=== PATIENT | female | born 1960 | race African-American/Black ===

== ENCOUNTER 2024-06-23 11:42 | Emergency (ER) | payer OTHER, SELFPAY ==
[2024-06-23 11:49] VITALS: BP 132/95
[2024-06-23 12:15] VITALS: BMI 35.1
[2024-06-23 12:31] LABS: % Basophils 0.2 % (0-2); % Immature Granulocytes 0.2 % (0-0.5); % Lymphocytes 20.9 % (20.5-51.1); % Monocytes 8.5 % (1.7-9.3); % Neutrophils 69.2 % (42.2-75.2); Absolute Eosinophils 0.1 10^3/uL (0-0.7); Absolute Lymphocytes 1.3 10^3/uL (1.2-3.4); Absolute Monocytes 0.5 10^3/uL (0.1-0.6); Absolute Neutrophils 4.1 10^3/uL (1.4-6.5); Hematocrit 31.8 % (37.0-47.0); Hemoglobin 10.3 g/dL (12.0-16.0); Mean Corp Hgb Conc. 32.4 g/dL (33.0-37.0); Mean Corpuscular Hgb 31.4 pg (27.0-31.0); Mean Platelet Volume 10.4 fL (7.4-10.4); Nucleated Red Blood Cells % 0 %; Platelet Count 136 10^3/uL (130-400); Red Blood Cell Count 3.28 10^6/uL (4.20-5.40); Red Cell Dist. Width 14.8 % (11.5-14.5)
[2024-06-23 12:58] LABS: INR 2.95; PT 30.7 Sec (11.4-14.6)
[2024-06-23 13:00] VITALS: BP 100/51
[2024-06-23 13:12] LABS: NT-proBNP 1240 pg/ml; Troponin I < 0.012 ng/ml
--- NOTE | 2024-06-23 13:15 | ED.GENMED ---
History of Present Illness
General
Chief Complaint: Chest Pain
Time Seen by Provider: 06/23/24 12:25
History of Present Illness
History of Present Illness:
63-year-old female presents the emergency department for evaluation of chest heaviness and difficulty breathing ongoing for the past 2 weeks. Symptoms are worse when she lies flat at night or when she exerts herself. She feels well currently while
resting in the exam bed. She does not weigh herself routinely, states that her weight typically fluctuates between 140 and 145 pounds. She is been compliant with all of her meds. Follows with cardiology at [facility].
Past History
Past History
ED Past Medical History: Arrthythmia (Atrial fib), CAD, CHF, HTN, Hypercholesterolemia, Valvular disease and Other (Bronchitis, PNA, Cellulitis breast)
ED Past Surgical History: Cardiac (Aortic Valve replacement) and Cholecystectomy
Social History
Tobacco: Non-smoker
Alcohol: None
Drug: None
Personal:
Living: with family
Employment: Employed
Family History
Family History: Other (denies)
Review of Systems
Review of Systems
Allergies reviewed?: Yes
All Other Systems: ROS reviewed and negative except as documented in HPI and ROS
Phy Exam
Physical Exam
Physical Exam:
GEN: Well appearing, NAD, WDWN
Eyes: PERRLA, EOMs intact, no scleral icterus
HENT: NCAT, oral mucosa moist
Lungs: C normal respiratory effort, diffuse inspiratory crackles heard throughout all lung corrigan
Cardiac: RRR, no M/R/G, Radial pulses 2+ bilat
Abdomen: S, NT, ND, NABS, no masses or hepatosplenomegaly
Neuro: AO x 3
MSK: No gross deformity or ecchymosis. Moderate pretibial edema. No digital clubbing
Skin: No rashes, petechiae. Normal color, no pallor or jaundice.
Psych: Calm, cooperative, proper hygiene
Scores
Heart Score for Chest Pain Patients
STEMI patient?: Not applicable
Course
Orders/Labs/Results
Orders:
Orders
06/23/24 11:53
ECG [Electrocardiogram (*1)] Urgent
Reason for Study: Chest Pain
EKG- Treatment ONCE
06/23/24 12:19
Complete Blood Count/With Diff Urgent
Comprehensive Metabolic Panel Urgent
NT-proBNP Urgent
Prothrombin Time Urgent
Troponin I Urgent
06/23/24 12:36
CR Chest - 2 Views Urgent
Comment:
Reason For Exam: chest pain/SOB
06/23/24 14:16
Bumetanide [Bumex] 2 mg IV NOW STA
Abnormal Lab Results
06/23/24
12:19
RBC 3.28 L 10^6/uL
(4.20-5.40)
Hgb 10.3 L g/dL
(12.0-16.0)
Hct 31.8 L %
(37.0-47.0)
MCH 31.4 H pg
(27.0-31.0)
MCHC 32.4 L g/dL
(33.0-37.0)
RDW 14.8 H %
(11.5-14.5)
PT 30.7 H Sec
(11.4-14.6)
BUN 24 H mg/dl
(7-17)
Creatinine 1.1 H mg/dL
(0.6-1.0)
Glucose 195 H mg/dl
(70-99)
06/23/24 12:19
06/23/24 12:19
Vital Signs
Initial and Last Documented VS:
Initial Vital Signs
Temp Pulse Resp BP Pulse Ox
97.9 F 73 20 132/95 98
06/23/24 11:49 06/23/24 11:49 06/23/24 11:49 06/23/24 11:49 06/23/24 11:49
Last Documented Vital Signs
Temp Pulse Resp BP Pulse Ox
97.9 F 49 21 123/41 97
06/23/24 11:49 06/23/24 14:00 06/23/24 14:15 06/23/24 14:00 06/23/24 14:15
MDM/Problems Addressed
MDM/Problems Addressed:
Patient's clinical presentation is most consistent with acute CHF. She is not hypoxic and is able to tolerate ambulation without significant increased work of breathing. I offered her admission and her and her would prefer discharge home.
Will briefly increase her Bumex dosage and recommend she follow-up with her certified medication technician as an outpatient
*Critical Care Note
Total Time (30-74mins, 75-104mins- exclusive of procedures): Not Applicable
ED Attending Note
-
Portions of this chart may have been created with voice recognition software.� Occasional wrong word or��sound alike� substitutions may have occurred due to the inherent limitations of voice recognition software.
Discharge Plan
Departure
Patient Disposition: Home (Routine Discharge)
Date of Disposition: 06/23/24
Time of Disposition: 14:19
Patient with high blood pressure during this ER visit?: No
Discharge Problem:
Acute exacerbation of CHF (congestive heart failure)
Instructions: Heart Failure, Adult (DC)
Prescriptions:
New
bumetanide 0.5 mg tablet
0.5 mg PO DAILY Qty: 5 0RF
No Action
aspirin 81 MG tablet,delayed release (DR/EC)
81 mg PO DAILY
simvastatin 40 MG tablet
40 mg PO QPM
glimepiride 2 MG tablet
2 mg PO DAILY
pantoprazole 40 MG tablet,delayed release (DR/EC)
40 mg PO DAILY
ranitidine HCl [Zantac 75] 75 MG tablet
75 mg PO QPM
potassium chloride 10 MEQ capsule, extended release
20 meq PO DAILY
methotrexate sodium [Trexall] 10 MG tablet
10 mg PO .[id number]
Patient Comments:
Last took on 09/30/18(MON)
warfarin [Jantoven] 7.5 MG tablet
7.5 mg PO SUTUWETHSA
warfarin [Jantoven] 5 MG tablet
5 mg PO MOFR
folic acid 1 MG tablet
1 mg PO DAILY
atenolol 25 MG tablet
25 mg PO DAILY
bumetanide 0.5 MG tablet
1.5 mg PO .-F
doxycycline hyclate 100 MG capsule
100 mg PO Q12 Qty: 14 0RF
Referrals:
Dale Christianson MD [Family Provider] -
Activity Restrictions/Additional Instructions:
We will increase your bumex to 2.5mg (you currently take 2mg) once daily for 5 days
Call your certified medication technician tomorrow for follow up
If your symptoms worsen, please return to the ER
Interventions
Interventions:
*Risk Screen - Suicide Last Done: 06/23/24 11:44
*General Assessment Last Done: 06/23/24 12:15
*Neglect/Abuse Screening Last Done: 06/23/24 12:15
ED- Cardiac Assessment Last Done: 06/23/24 12:15
Discharge Date and Time
Print Language: SLOVENIAN
[2024-06-23 13:40] VITALS: BP 123/39
[2024-06-23 14:00] VITALS: BP 123/41
[2024-06-23 14:15] LABS: ALT (SGPT) 19 U/L (0-35); AST (SGOT) 31 U/L (14-36); Albumin 4.4 g/dl (3.5-5.0); Alkaline Phosphatase 86 U/L (38-126); Blood Urea Nitrogen 24 mg/dl (7-17); Calcium 9.7 mg/dl (8.4-10.2); Carbon Dioxide 28 mmol/L (22-30); Chloride 102 mmol/L (98-107); Estimated Creatinine Clearance 37 ml/min; Glucose 195 mg/dl (70-99); Potassium 4.2 mmol/L (3.5-5.1); Sodium 141 mmol/L (135-145); Total Bilirubin 0.6 mg/dl (0.2-1.3); Total Protein 7.5 g/dl (6.3-8.2); eGFR 55.76
[2024-06-23] MEDS: BUMEX 2 MG IV (14:25)
== END 2024-06-23 15:21 | disposition home or self-care (01) ==
LOC: EMR 11:42
PROVIDERS: Emergency Medicine; EMERGENCY PHYSICIAN Student in an Organized Health Care Education/Training Program; FAMILY PHYSICIAN Internal Medicine
DX: I50.9 Heart failure, unspecified (principal)
CPT/HCPCS: 99285; 96374; 71046; 80053; 83880; 84484; 85025; 85610; 93005

== ENCOUNTER 2024-10-14 20:44 | Inpatient (IN) | payer OTHER, SELFPAY ==
[2024-10-14 13:40] VITALS: BP 132/62
--- NOTE | 2024-10-14 13:44 | ED.GENMED ---
ED Provider Triage
<Venice Jon PA-C - Last Filed: 10/14/24 19:04>
-
Patient seen by provider in Triage?: Seen in Triage
Attestation: A medical screening examination has been initiated by a qualified medical provider. Based on the assessment performed at this time, it has been determined that an emergent medical condition may exist and the patient has been informed
that further medical evaluation and possible additional diagnostic testing may be needed.
HPI: 64yoF here with SOB, leg swelling, chest heaviness x 1 week. Feels like she has fluid on her lungs. Hx of CHF on Bumex. Follows with a assurance analyst in [place].
GENERAL: Alert , in no apparent distress
EYE: No visual abnormalities.
NECK: Trachea midline
ENT: No visible abnormalities.
LUNGS: No acute respiratory distress
NEUROLOGICAL: Alert and oriented
SKIN: Skin intact. No visible changes.
MUSCULOSKELETAL: Moving extremities normally
PSYCH: Normal and appropriate interaction.
This is a medical evaluation conducted in person to initiate diagnostic evaluation and provide initial therapeutics. Please see further documentation by the treating clinician.
Bibasilar rales present. Cardiac labs, INR, EKG, and CXR ordered.
History of Present Illness
<Venice Jon PA-C - Last Filed: 10/14/24 19:04>
General
Chief Complaint: Breathing Problem
Time Seen by Provider: 10/14/24 15:25
<Rajani Grant PA-C - Last Filed: 10/14/24 18:22>
General
Source: patient
Exam Limitations: none
Nursing documentation reviewed up to this point in time: agreed with
History of Present Illness
History of Present Illness:
This is a 64-year-old female with past medical history of CHF, atrial fibrillation, GERD, diabetes, aortic stenosis presents emergency department today with concerns of shortness of breath, 3 pound weight gain, and lower extremity swelling. Patient
states that this started 2 weeks ago. She speaks in [place] and her is translating. She follows with Dr. Ravi with [facility]. She reports that she is unable to sleep laying down at night due to the shortness of breath
and cannot walk very far without feeling out of breath. She also states that she gets dizziness with exertion. She states that she has been coughing more frequently, denies any hemoptysis, denies coughing up the sputum. She denies any fevers or
chills nausea or vomiting, chest discomfort, belly pain. Denies any diarrhea or constipation. She currently takes 2 mg of bumetanide daily. She denies syncopal episodes.
Past History
<Venice Jon PA-C - Last Filed: 10/14/24 19:04>
Past History
ED Past Medical History: Arrthythmia (Atrial fib), CAD, CHF, HTN, Hypercholesterolemia, Valvular disease and Other (Bronchitis, PNA, Cellulitis breast)
ED Past Surgical History: Cardiac (Aortic Valve replacement) and Cholecystectomy
Social History
Tobacco: Non-smoker
Alcohol: None
Drug: None
Personal:
Living: with family
Employment: Employed
Family History
Family History: Other (denies)
Review of Systems
<Rajani Grant PA-C - Last Filed: 10/14/24 18:22>
Review of Systems
All Other Systems: ROS reviewed and negative except as documented in HPI and ROS
Phy Exam
<Rajani Grant PA-C - Last Filed: 10/14/24 18:22>
Physical Exam
Physical Exam:
General: Patient is well appearing and in no acute distress; non-toxic
Skin: Warm and dry, no rashes or lesions
Head: Normocephalic, atraumatic
Eyes: Sclera non-icteric. EOMs intact. PERRLA.
Cardiac: Regular rate and rhythm, no murmurs.
Peripheral Vascular: Bilateral lower extremity edema, 2+ dorsalis pedis pulses
Pulm: Increased respiratory effort, tachypnea and conversational dyspnea noted, diffuse crackles heard bilaterally
Abdomen: No abdominal tenderness to palpation
Neuro: CN II-XII intact, no focal neurologic deficits.
Psychiatric: Appropriate mood and affect.
Scores
<Venice Jon PA-C - Last Filed: 10/14/24 19:04>
Heart Failure Risk
HF Risk Score: 2
Admission Status: MEDIUM RISK 9.2% Consider observation or discharge to home with homecare & f/u visit to PCP/Small Engine Specialist, or SNF for treatment
<Rajani Grant PA-C - Last Filed: 10/14/24 18:22>
Heart Failure Risk
Heart Failure Risk Score: Yes
History of Stroke or TIA: No
History of intubation for respiratory distress: No
Heart rate on ED arrival >/= 110: No
SaO2 <90% on arrival on room air: No
HR >/=110 during 3min walk test (or too ill to perform test): Yes
ECG has acute ischemic changes: No
Urea >/=12mmol/L (BUN 33.6mg/dL): No
Serum CO2>/=35mmol/L: No
Troponin I or T elevated to OK Level (0.4mg/dL): No
NT-proBNP >/=5,000ng/L (5,000pg/ml): No
HF Risk Score: 2
Admission Status: MEDIUM RISK 9.2% Consider observation or discharge to home with homecare & f/u visit to PCP/Small Engine Specialist, or SNF for treatment
Course
<Venice Jon PA-C - Last Filed: 10/14/24 19:04>
Orders/Labs/Results
Orders:
Orders
10/14/24 13:43
Electrocardiogram (*1) Urgent
Reason for Study: Shortness of Breath
EKG- Treatment ONCE
CR Chest - 2 Views Urgent
Comment:
Reason For Exam: SOB
10/14/24 13:54
Prothrombin Time Urgent
10/14/24 13:55
Complete Blood Count/With Diff Urgent
Comprehensive Metabolic Panel Urgent
NT-proBNP Urgent
Troponin I Urgent
10/14/24 15:56
Potassium Chloride 10% Elixir [KCl Elixir] 40 meq PO NOW STA
10/14/24 17:10
Bumetanide [Bumex] 2 mg IV NOW STA
Abnormal Lab Results
10/14/24 10/14/24
13:54 13:55
RBC 3.28 L 10^6/uL
(4.20-5.40)
Hgb 9.9 L g/dL
(12.0-16.0)
Hct 30.8 L %
(37.0-47.0)
MCHC 32.1 L g/dL
(33.0-37.0)
RDW 16.5 H %
(11.5-14.5)
PT 27.9 H Sec
(11.4-14.6)
Potassium 3.4 L mmol/L
(3.5-5.1)
Chloride 97 L mmol/L
(98-107)
Carbon Dioxide 33 H mmol/L
(22-30)
BUN 23 H mg/dl
(7-17)
Creatinine 1.6 H mg/dL
(0.6-1.0)
Glucose 265 H mg/dl
(70-99)
10/14/24 13:55
10/14/24 13:55
Vital Signs
Initial and Last Documented VS:
Initial Vital Signs
Temp Pulse Resp BP Pulse Ox
98.2 F 66 18 132/62 96
10/14/24 13:40 10/14/24 13:40 10/14/24 13:40 10/14/24 13:40 10/14/24 13:40
Last Documented Vital Signs
Temp Pulse Resp BP Pulse Ox
98.2 F 60 17 101/58 98
10/14/24 13:40 10/14/24 17:39 10/14/24 17:39 10/14/24 17:39 10/14/24 17:39
<Rajani Grant PA-C - Last Filed: 10/14/24 18:22>
Orders/Labs/Results
Orders:
Orders
10/14/24 13:43
Electrocardiogram (*1) Urgent
Reason for Study: Shortness of Breath
EKG- Treatment ONCE
CR Chest - 2 Views Urgent
Comment:
Reason For Exam: SOB
10/14/24 13:54
Prothrombin Time Urgent
10/14/24 13:55
Complete Blood Count/With Diff Urgent
Comprehensive Metabolic Panel Urgent
NT-proBNP Urgent
Troponin I Urgent
10/14/24 15:56
Potassium Chloride 10% Elixir [KCl Elixir] 40 meq PO NOW STA
10/14/24 17:10
Bumetanide [Bumex] 2 mg IV NOW STA
Abnormal Lab Results
10/14/24 10/14/24
13:54 13:55
RBC 3.28 L 10^6/uL
(4.20-5.40)
Hgb 9.9 L g/dL
(12.0-16.0)
Hct 30.8 L %
(37.0-47.0)
MCHC 32.1 L g/dL
(33.0-37.0)
RDW 16.5 H %
(11.5-14.5)
PT 27.9 H Sec
(11.4-14.6)
Potassium 3.4 L mmol/L
(3.5-5.1)
Chloride 97 L mmol/L
(98-107)
Carbon Dioxide 33 H mmol/L
(22-30)
BUN 23 H mg/dl
(7-17)
Creatinine 1.6 H mg/dL
(0.6-1.0)
Glucose 265 H mg/dl
(70-99)
10/14/24 13:55
10/14/24 13:55
Vital Signs
Initial and Last Documented VS:
Initial Vital Signs
Temp Pulse Resp BP Pulse Ox
98.2 F 66 18 132/62 96
10/14/24 13:40 10/14/24 13:40 10/14/24 13:40 10/14/24 13:40 10/14/24 13:40
Last Documented Vital Signs
Temp Pulse Resp BP Pulse Ox
98.2 F 60 17 101/58 98
10/14/24 13:40 10/14/24 17:39 10/14/24 17:39 10/14/24 17:39 10/14/24 17:39
<Bairon Kovacs, DO - Last Filed: 10/14/24 16:16>
Orders/Labs/Results
Orders:
Orders
10/14/24 13:43
Electrocardiogram (*1) Urgent
Reason for Study: Shortness of Breath
EKG- Treatment ONCE
CR Chest - 2 Views Urgent
Comment:
Reason For Exam: SOB
10/14/24 13:54
Prothrombin Time Urgent
10/14/24 13:55
Complete Blood Count/With Diff Urgent
Comprehensive Metabolic Panel Urgent
NT-proBNP Urgent
Troponin I Urgent
10/14/24 15:56
Potassium Chloride 10% Elixir [KCl Elixir] 40 meq PO NOW STA
10/14/24 17:10
Bumetanide [Bumex] 2 mg IV NOW STA
Abnormal Lab Results
10/14/24 10/14/24
13:54 13:55
RBC 3.28 L 10^6/uL
(4.20-5.40)
Hgb 9.9 L g/dL
(12.0-16.0)
Hct 30.8 L %
(37.0-47.0)
MCHC 32.1 L g/dL
(33.0-37.0)
RDW 16.5 H %
(11.5-14.5)
PT 27.9 H Sec
(11.4-14.6)
Potassium 3.4 L mmol/L
(3.5-5.1)
Chloride 97 L mmol/L
(98-107)
Carbon Dioxide 33 H mmol/L
(22-30)
BUN 23 H mg/dl
(7-17)
Creatinine 1.6 H mg/dL
(0.6-1.0)
Glucose 265 H mg/dl
(70-99)
10/14/24 13:55
10/14/24 13:55
Vital Signs
Initial and Last Documented VS:
Initial Vital Signs
Temp Pulse Resp BP Pulse Ox
98.2 F 66 18 132/62 96
10/14/24 13:40 10/14/24 13:40 10/14/24 13:40 10/14/24 13:40 10/14/24 13:40
Last Documented Vital Signs
Temp Pulse Resp BP Pulse Ox
98.2 F 60 17 101/58 98
10/14/24 13:40 10/14/24 17:39 10/14/24 17:39 10/14/24 17:39 10/14/24 17:39
<Rajani Grant PA-C - Last Filed: 10/14/24 18:22>
MDM/Problems Addressed
Differential Diagnosis Includes:
See below
MDM/Problems Addressed:
NUMBER AND COMPLEXITY OF PROBLEMS ADDRESSED AT THE ENCOUNTER
� Chronic conditions affecting care: aortic stenosis, A-fib on warfarin, CHF, CAD
� Acute Exacerbation and/or Progression of Chronic Illness: CHF
� Differential Diagnosis includes: CHF, pneumonia, COPD, ACS,
AMOUNT AND/OR COMPLEXITY OF DATA TO BE REVIEWED AND ANALYZED
� I performed an independent evaluation of and my interpretation is:
EKG: Atrial fibrillation noted with right bundle branch block rate 65
X-rays: Cardiomegaly and diffuse pulmonary edema noted
Other:
� Review of other/old records: Reviewed discharge summary from 06/23/2024, patient seen for acute exacerbation of CHF, discharged with increase of diuretic, reviewed discharge summary from 03/25/2018, patient seen for hypoxic respiratory insufficiency
secondary to CHF and bronchitis
� Clinical information was obtained by an independent historian: who translated and helped provide HPI
� Prescriptions/Medications Considered but not given: none
� Further testing considered but not performed: n/a
RISK OF COMPLICATIONS AND/OR MORBIDITY OR MORTALITY OF PATIENT MANAGEMENT
� Social determinants of health affecting care: n/a
� Discussion with other providers: ER attending
� Escalation of care including admission/observation vs risk of discharge considered:
64-year-old female with past medical history of aortic stenosis, CHF presents emergency department today with increasing shortness of breath over the past 2 weeks along with a 3 pound weight gain bilateral lower extremity 1. Patient states that she
is unable to sleep at night due to the symptoms as persistent shortness of breath exertion and is not able to ambulate without significant symptoms. Here in emergency department she is dyspneic and tachypneic she has diffuse crackles heard on exam
her chest x-ray shows pulmonary edema and cardiomegaly concerning for CHF exacerbation. Will start IV diuresis in the ER and admit for further symptomatic treatment.
<Rajani Grant PA-C - Last Filed: 10/14/24 18:22>
*Critical Care Note
Total Time (30-74mins, 75-104mins- exclusive of procedures): Not Applicable
ED Attending Note
<Venice Jon PA-C - Last Filed: 10/14/24 19:04>
-
Portions of this chart may have been created with voice recognition software.� Occasional wrong word or��sound alike� substitutions may have occurred due to the inherent limitations of voice recognition software.
<Bairon Kovacs DO - Last Filed: 10/14/24 16:16>
ED Attending Note
Patient seen and examined by attending physician: Yes
I performed a history and physical exam of patient and discussed management with resident, I reviewed resident's note and agree with documented findings and plan of care.: Yes
ED Attending Note:
Seen with PA examined independently 64-year-old female history of heart failure on Bumex referred plan still cardiology for evaluation here looks to be volume overloaded by history and physical on x-ray, will replete her potassium started on IV
Bumex see how she does may require admission
Discharge Plan
Departure
Patient Disposition: Admit
Date of Disposition: 10/14/24
Time of Disposition: 18:23
Admit to: Med/Surg
Presentation/result/management discussed w/ accepting MD/DO: Hospitalist
Patient with high blood pressure during this ER visit?: Yes
Condition: Fair
Discharge Problem:
CHF (congestive heart failure), Respiratory distress
Prescriptions:
No Action
aspirin 81 MG tablet,delayed release (DR/EC)
81 mg PO DAILY
pantoprazole 40 MG tablet,delayed release (DR/EC)
40 mg PO DAILY
warfarin [Jantoven] 5 MG tablet
5 mg PO SUTUWETHFRSA
folic acid 1 MG tablet
1 mg PO DAILY
atenolol 25 MG tablet
25 mg PO DAILY
ipratropium-albuterol 0.5 mg-3 mg(2.5 mg base)/3 mL Solution For Nebulization
3 ml INHALATION R Q6HPRN PRN (Reason: sob)
bumetanide 2 mg Tablet
2 mg PO DAILY
warfarin 5 mg Tablet
7.5 mg PO MO
albuterol sulfate 90 mcg/actuation Hfa Aerosol Inhaler
2 puff INHALATION R Q6HPRN PRN (Reason: sob)
rosuvastatin 40 mg Tablet
40 mg PO HS
dapagliflozin propanediol [Farxiga] 10 mg Tablet
10 mg PO HS
metformin 500 mg Tablet
500 mg PO DAILY
spironolactone 25 mg Tablet
25 mg PO DAILY
Referrals:
Dale Christianson MD [Family Provider] -
Interventions
Interventions:
*Risk Screen - Suicide Last Done: 10/14/24 13:40
*Neglect/Abuse Screening Last Done: 10/14/24 13:40
ED- Cardiac Assessment Last Done: 10/14/24 17:39
ED- Pulmonary Assessment Last Done: 10/14/24 17:39
Discharge Date and Time
Print Language: INDONESIAN
[2024-10-14 14:08] LABS: % Basophils 0.6 % (0-2); % Eosinophils 1.3 % (0-6); % Immature Granulocytes 0.5 % (0-0.5); % Lymphocytes 23.3 % (20.5-51.1); % Monocytes 8.9 % (1.7-9.3); % Neutrophils 65.4 % (42.2-75.2); Absolute Eosinophils 0.1 10^3/uL (0-0.7); Absolute Lymphocytes 1.5 10^3/uL (1.2-3.4); Absolute Monocytes 0.6 10^3/uL (0.1-0.6); Absolute Neutrophils 4.1 10^3/uL (1.4-6.5); Hematocrit 30.8 % (37.0-47.0); Hemoglobin 9.9 g/dL (12.0-16.0); Mean Corp Hgb Conc. 32.1 g/dL (33.0-37.0); Mean Corpuscular Hgb 30.2 pg (27.0-31.0); Mean Corpuscular Volume 93.9 fL (81.0-99.0); Mean Platelet Volume 10.3 fL (7.4-10.4); Nucleated Red Blood Cells % 0 %; Platelet Count 131 10^3/uL (130-400); Red Blood Cell Count 3.28 10^6/uL (4.20-5.40); Red Cell Dist. Width 16.5 % (11.5-14.5); White Blood Cell Count 6.3 10^3/uL (4.8-10.8)
[2024-10-14 14:12] LABS: PT 27.9 Sec (11.4-14.6)
[2024-10-14 14:32] LABS: ALT (SGPT) 12 U/L (0-35); AST (SGOT) 25 U/L (14-36); Albumin 4.3 g/dl (3.5-5.0); Alkaline Phosphatase 85 U/L (38-126); Blood Urea Nitrogen 23 mg/dl (7-17); Calcium 9.2 mg/dl (8.4-10.2); Carbon Dioxide 33 mmol/L (22-30); Chloride 97 mmol/L (98-107); Glucose 265 mg/dl (70-99); Potassium 3.4 mmol/L (3.5-5.1); Sodium 140 mmol/L (135-145); Total Bilirubin 0.5 mg/dl (0.2-1.3); eGFR 35.35
[2024-10-14 14:44] LABS: Troponin I 0.023 ng/ml
[2024-10-14 15:09] LABS: NT-proBNP 1270 pg/ml
[2024-10-14] MEDS: KCL ELIXIR 40 MEQ PO (16:12)
[2024-10-14] MEDS: BUMEX 2 MG IV (17:34)
[2024-10-14 17:39] VITALS: BP 101/58
--- NOTE | 2024-10-14 19:13 | HPS.HSE ---
Family Physician
-
Family Physician: Dale Christianson
Chief Complaint
-
Dyspnea on exertion, orthopnea and weight gain
History of Present Illness
This is a 64-year-old with past medical history significant for congestive heart failure, AF status post mechanical aortic valve, atrial fibrillation, NIDDM, hyperlipidemia who presents to the emergency department with worsening dyspnea on exertion
and signs of congestive heart failure over the last few days.
Patient has chronic dyspnea on exertion at baseline. However over the last few days she has had increasing weight gain. She has orthopnea. She is unable to sleep due to the orthopnea. She reports increased lower extremity edema. She even
reports some shortness of breath at rest. She has a nonproductive cough. She denies any fevers or chills. She denies having any chest pain. She reports occasional palpitations. She denies any lightheadedness or dizziness. Has been no fevers or
chills. There have been no changes in her medications and she reports compliance.
On arrival in the emergency department she was afebrile, blood pressure was around 100/60 with a pulse of 60 respiratory rate was 17. ECG shows a sinus rhythm at a rate of [age]-year-old right bundle and left anterior fascicular block compared to
last year. Troponin was 0.02. BNP was 1200. CBC was unremarkable with a baseline anemia unchanged at 9.9 hemoglobin. INR 2.6. Electrolytes notable for a sodium of 140 potassium 3.4 a bicarb of 33. She has BUN of 23 and a creatinine of 1.6
which is worse compared to baseline of 1.1. Glucsoe 265.
Medical History
Past Medical History
Past Medical History: Reports Arrhythmia (paroxysmal atrial fibrillation), Asthma, CHF, HTN, Hypercholesterolemia, NIDDM and Valvular Disease (Aortic stenosis status post critical aortic valve)
Past Surgical History: Reports Cardiac (Mechanical aortic valve), Cholecystectomy and Other (Breast lumpectomy)
Social History
Tobacco: Non-smoker
Alcohol: None
Drug: None
Personal:
Living: With Family
Family History
Family History: Not pertinent
Allergies / Home Medications
Allergies reflects when Allergies were last updated in [employer].
Home Medications with original date entered in [employer]
Allergy/Medication List:
Allergies
Allergy/AdvReac Type Severity Reaction Status Date / Time
pineapple [Pineapple] Allergy Itching Verified 10/14/24 13:40
Home Medications
aspirin 81 mg tablet,delayed release 81 mg PO DAILY 01/25/14
pantoprazole 40 mg tablet,delayed release 40 mg PO DAILY 01/25/14
folic acid 1 mg tablet 1 mg PO DAILY 03/22/18
warfarin 5 mg tablet (Jantoven) 5 mg PO SUTUWETHFRSA 03/22/18
atenolol 25 mg tablet 25 mg PO DAILY 07/13/18
albuterol sulfate 90 mcg/actuation aerosol inhaler 2 puff inhalation R Q6HPRN PRN sob 10/14/24
bumetanide 2 mg tablet 2 mg PO DAILY 10/14/24
dapagliflozin propanediol 10 mg tablet (Farxiga) 10 mg PO HS 10/14/24
ipratropium 0.5 mg-albuterol 3 mg (2.5 mg base)/3 mL nebulization soln 3 ml inhalation R Q6HPRN PRN sob 10/14/24
metformin 500 mg tablet 500 mg PO DAILY 10/14/24
rosuvastatin 40 mg tablet 40 mg PO HS 10/14/24
spironolactone 25 mg tablet 25 mg PO DAILY 10/14/24
warfarin 5 mg tablet 7.5 mg PO MO 10/14/24
Review of Systems
-
History Source: Patient
Constitutional: Reports No Symptoms
EENT: Reports No Symptoms
Respiratory: Reports Cough and Trouble Breathing
Cardiac: Reports No Symptoms
Abdomen/GI: Reports No Symptoms
: Reports No Symptoms
Musculoskeletal: Reports No Symptoms
Skin: Reports No Symptoms
Neurological: Reports No Symptoms
Endocrine: Reports No Symptoms
Hematologic/Lymphatic: Reports No Symptoms
Psych: Reports No Symptoms
Physical Exam
Vital Signs
Vital Signs
Temp Pulse Resp BP Pulse Ox
98.2 F 60 17 101/58 98
10/14/24 13:40 10/14/24 17:39 10/14/24 17:39 10/14/24 17:39 10/14/24 17:39
Physical Exam
General: No Apparent Distress
HEENT: NormoCephalic, Anicteric and Moist mucous membranes
Respiratory: Crackles
Cardiac: S1/S2, Regular Rhythm and Peripheral Edema
Breast: Deferred by me
GI: Normal Bowel Sounds
Rectal: Deferred by Provider
Genito-urinary: Deferred by me
Musculoskeletal: No Clubbing, No Cyanosis, Edema, Left Lower Extremity (2+) and Edema, Right Lower Extremity (2+)
Skin: Warm
Neuro: AO x 3 and Nonfocal/grossly intact
Hematologic/Lymphatic: No Lymphadenopathy
Psych: Calm
Laboratory Results
-
10/14/24 13:55
10/14/24 13:55
Laboratory Results
PT 27.9 Sec (11.4-14.6) H 10/14/24 13:54
INR 2.60 10/14/24 13:54
Total Bilirubin 0.5 mg/dl (0.2-1.3) 10/14/24 13:55
AST 25 U/L (14-36) 10/14/24 13:55
ALT 12 U/L (0-35) 10/14/24 13:55
Alkaline Phosphatase 85 U/L (38-126) 10/14/24 13:55
Troponin I 0.023 ng/ml 10/14/24 13:55
Data Reviewed
-
Diagnostic Radiology: Image Personally Visualized and interpreted and Report Reviewed by me
Medical Tests (Nuc Med, Echo, EKG etc): Image Personally Visualized and interpreted
Lab Data: Labs Reviewed by me
Old Records: Reviewed
Impression/Plan
-
IMPRESSION:
64 y.o with CHF preserved EF, s/p ST Gaurang's mechanical valve placement, paroxysmal afib coming in with progressive SOB, MORGAN and orthopnea. Only mild weight gain per patient (about 2 -3 pounds). Increased LE edema. ECG today shows new LAFB and
new RBBB. Trop negative. BNP elevated. Xray with interstitial edema. No signs of an acute infectious process.
PLAN:
1. CHF exacerbation - Mild giving history but concerning giving elevated creatinine and boderline low bp, possible cardiorenal
- admit to telemetry for now
- bumex 2mg iv q 12 for now
- Keep K, Mag > 4, 2
- continue farixga and spironolactone
- rule out covid
- last echo was from several years ago, repeat echo
- cardiology consult
2. Valvular heart disease -
- continue AC with coumadin 7.5 sunday, 5 other days
3. Paroxysmal afib
- continue ac
- atenolol 25 daily
4. DM II
- continue metformin
- insulin sliding scale
- check a1c
DVT PPX - on coumadin
Code status - full code
[2024-10-14 20:27] LABS: COVID-19 Antigen Negative (Negative)
[2024-10-14 21:53] VITALS: BP 122/64
[2024-10-14 21:55] VITALS: BP 122/64
[2024-10-14 22:00] VITALS: BP 115/50
[2024-10-14 22:55] VITALS: BMI 34.6
[2024-10-14 23:00] VITALS: BP 143/63
[2024-10-14] MEDS: CRESTOR 40 MG PO (23:44)
[2024-10-14] MEDS: FARXIGA 10 MG PO (23:44)
--- NOTE | 2024-10-14 23:50 | PTCARENOTE ---
Pt arrived to room 434-01. Pt ambulated from stretcher to bed with x1 assist. Pt AAOx3, VSS, speaks primarily Belarusian. Pts at bedside, oriented pt and to room, call trevino placed within reach.
[2024-10-15] MEDS: TYLENOL 650 MG PO (00:14)
[2024-10-15] MEDS: LIDOCAINE 4% PATCH 2 PATCH TOPICAL ×2 (00:15→21:29)
[2024-10-15 03:00] VITALS: BP 149/59
[2024-10-15 04:50] VITALS: BMI 34.3
[2024-10-15 07:15] VITALS: BP 132/60
[2024-10-15 08:34] LABS: Glucose - Point of Care 141 mg/dl (70-99)
[2024-10-15 08:51] LABS: Blood Urea Nitrogen 19 mg/dl (7-17); Calcium 9.8 mg/dl (8.4-10.2); Carbon Dioxide 35 mmol/L (22-30); Chloride 100 mmol/L (98-107); Estimated Creatinine Clearance 28 ml/min; Glucose 139 mg/dl (70-99); Magnesium 1.8 mg/dl (1.6-2.3); Potassium 3.3 mmol/L (3.5-5.1); Sodium 144 mmol/L (135-145); TSH Reflex To Free T4 3.34 uIU/ml (0.47-4.68); eGFR 41.49
--- NOTE | 2024-10-15 09:13 | CON.CAR ---
Addendum entered and electronically signed by Pranav Alejo MD 10/15/24 15:23:
I saw and examined the patient.
The CHILDR[employer]IST[employer] DIRECTOR's note was reviewed and I agree with the note.
Comment:
She seems to be responding to treatment.
She is on good regimen for HFpEF.
Suspect that at discharge she may need a slight increase in diuretic regimen
- Home dose Bumex 2 mg daily
- Perhaps her new home dose maybe we try:
- Bumex 2 mg one time a day 4 days a week (Sun, Tue, Jenna, Sat) and BID 3 times a week on SUN/SUN/SUN
Echo 10/15/2024:
LV ejection fraction is 60-65%, by visual assessment. No regional wall motion
abnormalities are seen.
-Normal right ventricular size and function.
-Severely dilated left atrium. Severely dilated right atrium.
-Mild mitral stenosis; mean gradient 6 mmHg. Mild mitral regurgitation.
-St. Gaurang mechanical aortic valve with peak/mean gradients of 35/18 mmHg.
Trace aortic regurgitation.
-Moderate to severe tricuspid regurgitation. Estimated pulmonary artery
pressure of 75-80 mmHg.
-The IVC is dilated and does not collapse.
Compared to previous echo on 10/07/2018, PASP has increased (previously 45-50
mmHg).
Original Note:
Consultation
Consultation Request
Date/Time Consultation Requested: 10/15/24 8331
Date/Time Consultation Performed: 10/15/24 8745
Requesting Provider: Dr. Sauceda
Performing Provider: Noreen COOPER for Dr. Alejo
Reason for Consultation: CHF
Medical History
-
Chief Complaint: SOB, orthpnea
History of Present Illness:
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 Gaurang mechanical AVR on warfarin, afib on warfarin, CAD with hx CABG, GERD, DM, moderate to severe TR, and hypertension. She is Sami-speaking and I used the briquette operator IPAD to
effectively communicate. She is here for SOB, which is worse with laying. She also gets chest pressure with laying. About 2 weeks ago, she also noted more LE edema, but that has improved. She is here for CHF exacerbation. She reports compliance with
medicines. EKG shows bifascicular block, which is a change from our most recent here. She remains in rate-controlled AFIB. She is in no distress at the time of my assessment. She has received IV Bumex and has been urinating more. She reports no
weight gain of recent.
Past Medical History
Past Medical History: Arrhythmias, CAD, GERD, HTN, NIDDM and Valvular Disease
Social History
Tobacco: Non-Smoker
Personal:
Family History
Family History: Reviewed & Not Pertinent
Allergies / Home Medications
Allergy/AdvReac Type Severity Reaction Status Date / Time
pineapple [Pineapple] Allergy Itching Verified 10/14/24 13:40
�Medication �Instructions �Recorded �Confirmed �Type
aspirin 81 mg tablet,delayed 81 mg PO DAILY 01/25/14 10/14/24 History
release
pantoprazole 40 mg tablet,delayed 40 mg PO DAILY 01/25/14 10/14/24 History
release
folic acid 1 mg tablet 1 mg PO DAILY 03/22/18 10/14/24 History
warfarin 5 mg tablet (Jantoven) 5 mg PO SUTUWETHFRSA 03/22/18 10/14/24 History
atenolol 25 mg tablet 25 mg PO DAILY 07/13/18 10/14/24 History
albuterol sulfate 90 mcg/actuation 2 puff inhalation R Q6HPRN PRN sob 10/14/24 10/14/24 History
aerosol inhaler
bumetanide 2 mg tablet 2 mg PO DAILY 10/14/24 10/14/24 History
dapagliflozin propanediol 10 mg 10 mg PO HS 10/14/24 10/14/24 History
tablet (Farxiga)
ipratropium 0.5 mg-albuterol 3 mg 3 ml inhalation R Q6HPRN PRN sob 10/14/24 10/14/24 History
(2.5 mg base)/3 mL nebulization
soln
metformin 500 mg tablet 500 mg PO DAILY 10/14/24 10/14/24 History
rosuvastatin 40 mg tablet 40 mg PO HS 10/14/24 10/14/24 History
spironolactone 25 mg tablet 25 mg PO DAILY 10/14/24 10/14/24 History
warfarin 5 mg tablet 7.5 mg PO MO 10/14/24 10/14/24 History
Review of Systems
-
History Source: Patient and Other (and chart)
Respiratory: Trouble Breathing (orthopnea)
Musculoskeletal: Edema
Physical Exam
Vital Signs
Temp Pulse Resp BP Pulse Ox
98.9 F 71 18 132/60 97
10/15/24 07:15 10/15/24 07:15 10/15/24 07:15 10/15/24 07:15 10/15/24 07:15
Lab Results
10/14/24 13:55
10/15/24 07:42
Troponin I 0.023 ng/ml 10/14/24 13:55
Fnb-N-Gupzuomcgnf Pept 1270 pg/ml 10/14/24 13:55
Physical Exam
General: Well Developed, Well Nourished and No Apparent Distress
HEENT: Normocephalic and Anicteric
Respiratory: Crackles (b/l bases)
Cardiac: Irregular Rhythm
Musculoskeletal: Edema (mild BLE edema)
Skin: Warm and Dry
Neuro: AO x 3
Psych: Calm
Impression / Plan
-
Jagld-uf-zxehnsh HFpEF:
-updating echo this AM
-agree with IV Bumex, which requires intensive monitoring
-on Farxiga and spironolactone as OP
-hypokalemia is noted and replacement is ordered by primary team- monitor closely
AFIB: type unknown, but suspect persistent or permanent
-rate-controlled
-continue atenolol
-continue warfarin and follow INR's
-bifascicular block noted by EKG- follow telemetry
Mechanical [facility] Gaurang AVR:
-update echo
-continue warfarin and monitor INR's
CAD s/p CABG:
-no anginal sounding CP and trop unremarkable
-on ASA, statin, BB
VINCENT:
-improving with diuresis
-follow closely
Data Reviewed
-
EKG: Tracing Personally Visualized and interpreted (AFIB with bifasicular block)
Radiology: Report Reviewed by me (10/14/24: Moderate cardiomegaly. Mild interstitial cardiogenic pulmonary edema. Previous CABG surgery and aortic valve replacement. Mildly decreased bilateral lung volumes. )
Medical Tests (Nuc Med, Echo etc): Report Reviewed by me (-Echo 10/07/18: EF 50-55%, severely dilated atria. Well-seated St. Gaurang mechanical aortic valve with peak/mean gradients of 23/11 mmHg. Moderate to severe tricuspid regurgitation. PAP 45-50
mmHg.)
Labs: Labs Reviewed by me
--- NOTE | 2024-10-15 09:14 | W.PN.HOSP.TC ---
Today's Communication/Plan
-
Continue Bumex
Continue Coumadin
Assessment / Plan
Assessment / Plan
Physical Exam
General: No Apparent Distress
HEENT: Normocephalic. Moist mucous membranes.
Respiratory: Crackles
Cardiac: S1/S2, Irregular Rhythm
GI: Soft. Nontender. Normal Bowel Sounds.
Musculoskeletal: No Cyanosis. Edema, Left Lower Extremity (2+). Edema, Right Lower Extremity (2+).
Skin: Warm. Dry.
Neuro: AAO x 3 and Nonfocal/grossly intact
Psych: Calm
Assessment/Plan
64 y/o female with CHF preserved EF, s/p ST Gaurang's mechanical valve placement, paroxysmal afib coming in with progressive SOB, MORGAN and orthopnea. Only mild weight gain per patient (about 2 -3 pounds). Increased LE edema.
#Rpctm-ms-kbodlkf HFpEF
#Pulmonary Edema
- Continue monitoring on telemetry for now
- Continue IV Bumex
- Keep K, Mag > 4, 2
- continue farixga and spironolactone
- echo
- cardiology consult
#Valvular heart disease
- continue AC with coumadin 7.5 sunday, 5 other days
#Paroxysmal Atrial fibrillation
- continue ac
- atenolol 25 daily
#DM II
- continue metformin
- insulin sliding scale
- check a1c
DVT Prophylaxis: On Coumadin
Code Status: full code
Anticipated Discharge: 24 - 48 hours
Subjective/Interval History
-
Date of Service: October 15, 2024
Patient was seen and examined. She denied any new symptoms or complaints.
Objective Data
-
Labs:
Laboratory Results
10/15/24
07:42
Sodium 144
Potassium 3.3 L
Chloride 100
Carbon Dioxide 35 H
BUN 19 H
Creatinine 1.4 H
Glucose 139 H
Calcium 9.8
Vital Signs:
Vital Signs
Temp Pulse Resp BP Pulse Ox
98.9 F 71 18 132/60 97
10/15/24 07:15 10/15/24 07:15 10/15/24 07:15 10/15/24 07:15 10/15/24 07:15
I&O
10/14/24 10/15/24 10/16/24
06:59 06:59 06:59
Intake Total 120 / 120
Balance 120 / 120
[2024-10-15] MEDS: BUMEX 2 MG IV ×2 (09:52→16:46)
[2024-10-15] MEDS: ALDACTONE 25 MG PO (10:19)
[2024-10-15] MEDS: FOLVITE 1 MG PO (10:20)
[2024-10-15] MEDS: KCL 20 MEQ PO ×2 (10:20→15:27)
[2024-10-15] MEDS: ASPIR LOW (ENTERIC COATED) 81 MG PO (10:20)
[2024-10-15] MEDS: PROTONIX 40 MG PO (10:20)
[2024-10-15] MEDS: TENORMIN 25 MG PO (10:20)
[2024-10-15] MEDS: COUMADIN 5 MG PO (10:23)
[2024-10-15 11:29] VITALS: BP 150/66
[2024-10-15 11:53] LABS: Glucose - Point of Care 224 mg/dl (70-99)
[2024-10-15 15:07] VITALS: BP 117/49
[2024-10-15 15:46] LABS: Glucose - Point of Care 182 mg/dl (70-99)
--- NOTE | 2024-10-15 16:15 | CM ---
senior asset manager reviewed patient's chart and met with patient and patient lives with spouse in a multilevel home, patient is independent with adl's and uses a cane or walker ambulation.
PCP: Dale Christianson
Pharmacy: [facility].
Plan; Home when stable, no needs.
[2024-10-15 19:32] VITALS: BP 118/58
[2024-10-15] MEDS: FARXIGA 10 MG PO (19:51)
[2024-10-15] MEDS: CRESTOR 40 MG PO (19:51)
[2024-10-15 21:58] LABS: Glucose - Point of Care 168 mg/dl (70-99)
[2024-10-15 23:11] VITALS: BP 112/56
[2024-10-16 03:36] VITALS: BP 138/56
[2024-10-16 06:00] VITALS: BMI 33.9
[2024-10-16 07:10] VITALS: BP 111/44
[2024-10-16 07:59] LABS: Glucose - Point of Care 147 mg/dl (70-99)
--- NOTE | 2024-10-16 08:20 | W.PN.CD ---
Addendum entered and electronically signed by Nasir Duffy MD 10/16/24 09:22:
I spoke to her primary tractor sweeper driver who confirmed that afib is permanant
primary tractor sweeper driver would like to continue atenolol as the BB.
There is a question of some non compliance with diuretics at timeswhen time for discharge plan will be to continue Bumex as the oral diuretic and may consider modest increasein dosing
alf follow up with Dr Palmer ( she has also refererd joe for advanced HF consult )
Original Note:
Today's Communication / Plan
-
Check INR and assess coumadin dosing
continue diuresis with close monitoring of labs
Awaiting AM labs
Will try and obtain info from Dr Ravi to know if afib is permanant or if she was more recently in sinus
reviewed issues with patients
Impression / Plan
-
Primary tractor sweeper driver is Dr Ravi
Uebvj-kv-vdcxvgh HFpEF:
-echo this admit with normal LVF, normally functioning mechanical AVR, pulmonary HTN and mod to severe TR
-agree with IV Bumex, which requires intensive monitoring
-on Farxiga and spironolactone as OP
-monitor K, weights , I/o and renal function
AFIB: type unknown, but suspect persistent or permanent
-rate-controlled
-continue atenolol
-continue warfarin and follow INR's. NOT A DOAC CANDIDATE DUE TO MECHANICAL AVR
-bifascicular block noted by EKG- follow telemetry
Mechanical [facility] Gaurang AVR:
-update echo
-continue warfarin and monitor INR's
CAD s/p CABG:
-no anginal sounding CP and trop unremarkable
-on ASA, statin, BB
VINCENT:
-improving with diuresis
-follow closely
echo 10/15/22
-LV ejection fraction is 60-65%, by visual assessment. No regional wall motion
abnormalities are seen.-Normal right ventricular size and function.
-Severely dilated left atrium. Severely dilated right atrium.
-Mild mitral stenosis; mean gradient 6 mmHg. Mild mitral regurgitation.
-St. Gaurang mechanical aortic valve with peak/mean gradients of 35/18 mmHg. Trace aortic regurgitation.
-Moderate to severe tricuspid regurgitation. Estimated pulmonary artery
pressure of 75-80 mmHg.
-The IVC is dilated and does not collapse.
Physical Exam
Vital Signs/Labs
Vital Signs
Temp Pulse Resp BP Pulse Ox
98.4 F 62 18 111/44 94
10/16/24 07:10 10/16/24 07:10 10/16/24 07:10 10/16/24 07:10 10/16/24 07:10
10/15/24 10/16/24 10/17/24
06:59 06:59 06:59
Actual Weight 64.467 kg 63.645 kg
PT 27.9 Sec (11.4-14.6) H 10/14/24 13:54
INR 2.60 10/14/24 13:54
Magnesium 1.8 mg/dl (1.6-2.3) 10/15/24 07:42
10/14/24
13:55
Pdh-R-Lnmiwcjrxtt Pept 1270
LAB Results
10/14/24
13:55
Troponin I 0.023
Physical Exam
Constitutional: No acute distress
Cardiovascular: Rhythm/rate is irregular and Other ([facility] S2)
Respiratory: Lungs clear to auscul., Crackles Absent and Wheeze Present
GI: Soft and Non tender
Other: Other (chonic skin changes / venous stasis change an midl edea.)
Data Reviewed
-
Date of Service: October 16, 2024
Medical Decision Making: Reviewed Test Results and Review of Case with other Provider (reviewed tx issues with nurse )
Echo: Report Reviewed by me
Medical Tests (PFT, Pathology etc): Report Reviewed by me
Labs: Labs Reviewed by me
[2024-10-16 08:45] LABS: INR 2.44; PT 26.9 Sec (11.4-14.6)
[2024-10-16 08:57] LABS: Hematocrit 36.4 % (37.0-47.0); Hemoglobin 11.7 g/dL (12.0-16.0); Mean Corp Hgb Conc. 32.1 g/dL (33.0-37.0); Mean Corpuscular Volume 93.3 fL (81.0-99.0); Mean Platelet Volume 10.5 fL (7.4-10.4); Platelet Count 161 10^3/uL (130-400); Red Cell Dist. Width 16.5 % (11.5-14.5); White Blood Cell Count 6.5 10^3/uL (4.8-10.8)
[2024-10-16 09:05] LABS: Blood Urea Nitrogen 19 mg/dl (7-17); Calcium 10.2 mg/dl (8.4-10.2); Chloride 93 mmol/L (98-107); Estimated Creatinine Clearance 26 ml/min; Glucose 162 mg/dl (70-99); Magnesium 1.9 mg/dl (1.6-2.3); Potassium 3.7 mmol/L (3.5-5.1); Sodium 144 mmol/L (135-145)
[2024-10-16 09:14] LABS: Carbon Dioxide 34 mmol/L (22-30)
--- NOTE | 2024-10-16 09:40 | W.PN.HOSP.TC ---
Today's Communication/Plan
-
c/w IV Bumex
c/w Coumadin
Monitor weight
Assessment / Plan
Assessment / Plan
Physical Exam
General: No Apparent Distress
HEENT: Normocephalic. Moist mucous membranes.
Respiratory: no Crackles
Cardiac: S1/S2, Irregular Rhythm
GI: Soft. Nontender. Normal Bowel Sounds.
Musculoskeletal: No Cyanosis. Edema, Left Lower Extremity (2+). Edema, Right Lower Extremity (2+).
Skin: Warm. Dry.
Neuro: AAO x 3 and Nonfocal/grossly intact
Psych: Calm
Assessment/Plan
64 y/o female with CHF preserved EF, s/p ST Gaurang's mechanical valve placement, paroxysmal afib coming in with progressive SOB, MORGAN and orthopnea. Only mild weight gain per patient (about 2 -3 pounds). Increased LE edema.
#Loibz-ui-uupjeaz HFpEF
# acute cardiogenic Pulmonary Edema
- Continue monitoring on telemetry for now
- Continue IV Bumex
- Keep K, Mag > 4, 2
- continue Farxiga and spironolactone
- echo showed LVEF 6-65%. [facility]. Gaurang mechanical aortic valve with peak/mean gradients of 35/18 mmHg. Trace AI. Mod to severe TR, Mild MR.
- cardiology consult appreciated
#Valvular heart disease
- continue AC with Coumadin 7.5 sunday, 5 other days
#Permanent Atrial fibrillation
- continue ac
- atenolol 25 daily
#DM II
- continue metformin
- insulin sliding scale
- check a1c
# CKD stage IIIb
DVT Prophylaxis: On Coumadin
Code Status: full code
Total time spent to see the patient, examine the patient, review data and lab results, discuss treatment plan with patient, nursing staff around 55 minutes
Anticipated Discharge: 24 - 48 hours
Subjective/Interval History
-
Date of Service: October 16, 2024
No chest pain
No sob
No fevers
Objective Data
-
Labs:
Laboratory Results
10/16/24
08:07
WBC 6.5
Hgb 11.7 L
Hct 36.4 L
Plt Count 161 D
PT 26.9 H
INR 2.44
Sodium 144
Potassium 3.7
Chloride 93 L
Carbon Dioxide 34 H
BUN 19 H
Creatinine 1.5 H
Glucose 162 H
Calcium 10.2
Vital Signs:
Vital Signs
Temp Pulse Resp BP Pulse Ox
98.4 F 62 18 111/44 94
10/16/24 07:10 10/16/24 07:10 10/16/24 07:10 10/16/24 07:10 10/16/24 07:10
I&O
10/15/24 10/16/24 10/17/24
06:59 06:59 06:59
Intake Total 120 / 120 840 / 840
Balance 120 / 120 840 / 840
[2024-10-16] MEDS: TENORMIN 25 MG PO (10:26)
[2024-10-16] MEDS: ALDACTONE 25 MG PO (10:26)
[2024-10-16] MEDS: PROTONIX 40 MG PO (10:26)
[2024-10-16] MEDS: FOLVITE 1 MG PO (10:27)
[2024-10-16] MEDS: ASPIR LOW (ENTERIC COATED) 81 MG PO (10:27)
[2024-10-16] MEDS: BUMEX 2 MG IV ×2 (10:29→16:11)
[2024-10-16] MEDS: COUMADIN 5 MG PO (10:36)
[2024-10-16 11:02] VITALS: BP 152/68
--- NOTE | 2024-10-16 11:24 | CM ---
Chart reviewed and plan is to home with spouse when stable, patient has denied the need for visiting nurses at discharge.
Plan; Home with spouse when stable, no needs.
[2024-10-16 11:56] LABS: Glucose - Point of Care 258 mg/dl (70-99)
[2024-10-16 15:02] VITALS: BP 124/58
[2024-10-16] MEDS: FLUSH (NSS) 2 FLUSH IV (16:12)
[2024-10-16 17:13] LABS: Glucose - Point of Care 207 mg/dl (70-99)
[2024-10-16] MEDS: FARXIGA 10 MG PO (19:45)
[2024-10-16] MEDS: CRESTOR 40 MG PO (19:45)
[2024-10-16] MEDS: LIDOCAINE 4% PATCH TOPICAL ×2 (19:45→19:51)
[2024-10-16 19:51] VITALS: BP 107/56
[2024-10-16 21:02] LABS: Hepatitis C Antibody Negative (Negative)
[2024-10-16 21:03] LABS: Glucose - Point of Care 240 mg/dl (70-99)
[2024-10-16 23:10] VITALS: BP 118/52
[2024-10-17 03:05] VITALS: BP 121/52
[2024-10-17 06:00] VITALS: BMI 33.5
--- NOTE | 2024-10-17 06:40 | W.PN.HOSP.TC ---
Today's Communication/Plan
-
likely dc in am
Assessment / Plan
Assessment / Plan
Physical Exam
General: No Apparent Distress
HEENT: Normocephalic. Moist mucous membranes.
Respiratory: no Crackles
Cardiac: S1/S2, Irregular Rhythm
GI: Soft. Nontender. Normal Bowel Sounds.
Musculoskeletal: No Cyanosis. Edema, Left Lower Extremity (2+). Edema, Right Lower Extremity (2+).
Skin: Warm. Dry.
Neuro: AAO x 3 and Nonfocal/grossly intact
Psych: Calm
Assessment/Plan
64 y/o female with CHF preserved EF, s/p ST Gaurang's mechanical valve placement, paroxysmal afib coming in with progressive SOB, MORGAN and orthopnea. Only mild weight gain per patient (about 2 -3 pounds). Increased LE edema.
#Xaonr-vs-nlrqygo HFpEF
# acute cardiogenic Pulmonary Edema
- Continue monitoring on telemetry for now
- Continue IV Bumex
- Keep K, Mag > 4, 2
- continue Farxiga and spironolactone
- echo showed LVEF 6-65%. St. Gaurang mechanical aortic valve with peak/mean gradients of 35/18 mmHg. Trace AI. Mod to severe TR, Mild MR.
- cardiology consult appreciated
# hypokalemia
replace
#Valvular heart disease
- continue AC with Coumadin 7.5 sunday, 5 other days
#Permanent Atrial fibrillation
- continue ac
- atenolol 25 daily
#DM II
- continue metformin
- insulin sliding scale
- check a1c
# CKD stage IIIb
Creatinine around 1.4, improving/ stable since admission
DVT Prophylaxis: On Coumadin
Code Status: full code
Total time spent to see the patient, examine the patient, review data and lab results, discuss treatment plan with patient, nursing staff around 55 minutes
Anticipated Discharge: Within 24 hours
Subjective/Interval History
-
Date of Service: October 17, 2024
She feels sob at times
no chest pain
Objective Data
-
Labs:
Laboratory Results
10/17/24
06:00
PT Pending
INR Pending
Sodium Pending
Potassium Pending
Chloride Pending
Carbon Dioxide Pending
BUN Pending
Creatinine Pending
Glucose Pending
Calcium Pending
Vital Signs:
Vital Signs
Temp Pulse Resp BP Pulse Ox
98.1 F 63 20 121/52 93
10/17/24 03:05 10/17/24 03:05 10/17/24 03:05 10/17/24 03:05 10/17/24 03:05
I&O
10/15/24 10/16/24 10/17/24
06:59 06:59 06:59
Intake Total 120 / 120 840 / 840 660 / 660
Balance 120 / 120 840 / 840 660 / 660
[2024-10-17 07:00] VITALS: BP 113/67
[2024-10-17 07:34] LABS: Glucose - Point of Care 146 mg/dl (70-99)
[2024-10-17 08:45] LABS: INR 2.91; PT 30.3 Sec (11.4-14.6)
[2024-10-17 09:11] LABS: Blood Urea Nitrogen 23 mg/dl (7-17); Calcium 9.3 mg/dl (8.4-10.2); Chloride 94 mmol/L (98-107); Estimated Creatinine Clearance 28 ml/min; Glucose 149 mg/dl (70-99); Magnesium 1.8 mg/dl (1.6-2.3); Potassium 3.4 mmol/L (3.5-5.1); Sodium 142 mmol/L (135-145); eGFR 41.49
[2024-10-17 09:22] LABS: Carbon Dioxide 36 mmol/L (22-30)
[2024-10-17] MEDS: FOLVITE 1 MG PO (09:45)
[2024-10-17] MEDS: ALDACTONE 25 MG PO (09:45)
[2024-10-17] MEDS: ASPIR LOW (ENTERIC COATED) 81 MG PO (09:46)
[2024-10-17] MEDS: PROTONIX 40 MG PO (09:46)
[2024-10-17] MEDS: TENORMIN 25 MG PO (09:47)
[2024-10-17] MEDS: COUMADIN 5 MG PO (09:49)
[2024-10-17 11:00] VITALS: BP 91/44
[2024-10-17 11:34] LABS: Glucose - Point of Care 293 mg/dl (70-99)
--- NOTE | 2024-10-17 13:59 | CM ---
Patient seen bedside.
Patient aware of CM availability should needs arise.
plan: remains home no needs.
[2024-10-17] MEDS: KCL 20 MEQ PO (14:16)
--- NOTE | 2024-10-17 14:23 | W.PN.CD ---
Addendum entered and electronically signed by Nasir Duffy MD 10/17/24 16:59:
I saw and examined the patient.
The METAL W[employer]OW [employer]AME [employer]KER's note was reviewed and I agree with the note.
Respiratory status is stable. Creatinine 1.4. Weights are down. Blood pressure relatively low. Will hold on additional diuresis today and monitor pressures. Reduce atenolol to 12.5 mg daily
Reassessment of renal function in AM.
If renal function and blood pressure stable in a.m. then would resume oral Bumex.
Long-term follow-up will be with Dr. Ravi who has been following this patient closely and has referred for advanced heart failure consult
Original Note:
Today's Communication / Plan
-
Hold Bumex today
Impression / Plan
-
IMPRESSION/PLAN: 64 [place] [address] [facility] mechanical AVR (on warfarin), persistent versus permanent atrial fibrillation, CAD with prior CABG, GERD, DM, moderate to severe TR, and hypertension who presented with orthopnea
Primary community integration specialist: Dr Ravi
Tvznh-tu-rqkdqqm HFpEF:
-Intravenous bumetanide on hold for hypotension
-GDMT with Farxiga and spironolactone, continue
-Trend daily weights , I/O, and renal function
Atrial fibrillation, persistent versus permanent
-Rate-controlled on atenolol
-Oral anticoagulation: Warfarin (mechanical AVR)
Mechanical [facility] [facility] AVR:
-Normally functioning valve on TTE, peak/mean gradient 35/18 mmHg
-Continue anticoagulation with warfarin, INR 2.91 today
CAD s/p CABG:
-Chest pain-free, continue current medical therapy
VINCENT on Chronic kidney disease stage IIIb
-Stable, follows diuresis
Moderate to severe tricuspid regurgitation
Pulmonary hypertension
Bifascicular block
NIDDM, per primary
DATA:
TTE, 10/15/22:
-LV ejection fraction is 60-65%, by visual assessment. No regional wall motion
abnormalities are seen.-Normal right ventricular size and function.
-Severely dilated left atrium. Severely dilated right atrium.
-Mild mitral stenosis; mean gradient 6 mmHg. Mild mitral regurgitation.
-[facility]ang mechanical aortic valve with peak/mean gradients of 35/18 mmHg. Trace aortic regurgitation.
-Moderate to severe tricuspid regurgitation. Estimated pulmonary artery
pressure of 75-80 mmHg.
-The IVC is dilated and does not collapse.
Physical Exam
Vital Signs/Labs
Vital Signs
Temp Pulse Resp BP Pulse Ox
98.1 F 61 16 91/44 95
10/17/24 11:00 10/17/24 11:00 10/17/24 11:00 10/17/24 11:00 10/17/24 11:00
10/16/24 10/17/24 10/18/24
06:59 06:59 06:59
Actual Weight 63.645 kg 63 kg
10/16/24 08:07
10/17/24 07:56
PT 30.3 Sec (11.4-14.6) H 10/17/24 07:56
INR 2.91 10/17/24 07:56
Magnesium 1.8 mg/dl (1.6-2.3) 10/17/24 07:56
10/14/24
13:55
Gqy-P-Shyxxaeuwui Pept 1270
LAB Results
10/14/24
13:55
Troponin I 0.023
Physical Exam
Constitutional: No acute distress and Comfortable
EENT: Anicteric and Moist mucous membranes
Cardiovascular: Rhythm/rate is irregular, S1S2 is normal and Other (Mechanical S2)
Respiratory: Respiratory effort normal and Lungs clear to auscul.
GI: Soft, Distention absent, Flat, Non tender and Normal bowel sounds
Neuro/Psych: AO x 3
Other: Skin (Warm and dry)
Data Reviewed
-
Date of Service: October 17, 2024
[2024-10-17 15:00] VITALS: BP 104/44
--- NOTE | 2024-10-17 15:18 | PTCARENOTE ---
Patient maintained on telemetry per protocol. Rhythm is a-fib 60 bpm when OOB or sitting on side of bed, but primarily bradycardia 40 bpm today, including when in bed resting. Patient remains asymptomatic. Violeta Doherty NP aware.
[2024-10-17 16:35] LABS: Glucose - Point of Care 212 mg/dl (70-99)
[2024-10-17 19:37] VITALS: BP 122/68
[2024-10-17] MEDS: CRESTOR 40 MG PO (20:37)
[2024-10-17] MEDS: FARXIGA 10 MG PO (20:37)
[2024-10-17] MEDS: LIDOCAINE 4% PATCH TOPICAL (20:39)
[2024-10-17 22:01] LABS: Glucose - Point of Care 302 mg/dl (70-99)
[2024-10-17 23:08] VITALS: BP 104/49
[2024-10-17] MEDS: NOVOLOG FLEXPEN 4 UNITS SC (23:26)
[2024-10-18 02:00] LABS: Glucose - Point of Care 172 mg/dl (70-99)
[2024-10-18 03:05] VITALS: BP 122/51
[2024-10-18 06:00] VITALS: BMI 32.9
[2024-10-18 07:00] VITALS: BP 108/79
[2024-10-18 07:37] LABS: Glucose - Point of Care 139 mg/dl (70-99)
[2024-10-18 07:55] LABS: INR 3.36; PT 33.8 Sec (11.4-14.6)
[2024-10-18 08:21] LABS: Blood Urea Nitrogen 28 mg/dl (7-17); Calcium 9.3 mg/dl (8.4-10.2); Carbon Dioxide 38 mmol/L (22-30); Chloride 96 mmol/L (98-107); Estimated Creatinine Clearance 24 ml/min; Glucose 155 mg/dl (70-99); Potassium 4.4 mmol/L (3.5-5.1); Sodium 142 mmol/L (135-145); eGFR 35.35
[2024-10-18] MEDS: ASPIR LOW (ENTERIC COATED) 81 MG PO (08:45)
[2024-10-18] MEDS: ALDACTONE 25 MG PO (08:45)
[2024-10-18] MEDS: TENORMIN 12.5 MG PO (08:45)
[2024-10-18] MEDS: PROTONIX 40 MG PO (08:45)
[2024-10-18] MEDS: FOLVITE 1 MG PO (08:46)
[2024-10-18] MEDS: BUMEX 2 MG PO (08:46)
[2024-10-18] MEDS: COUMADIN PO (08:55)
--- NOTE | 2024-10-18 09:15 | W.PN.HOSP.TC ---
Today's Communication/Plan
-
Discharge
Assessment / Plan
Assessment / Plan
Physical Exam
General: No Apparent Distress
HEENT: Normocephalic. Moist mucous membranes.
Respiratory: no Crackles
Cardiac: S1/S2, Irregular Rhythm
GI: Soft. Nontender. Normal Bowel Sounds.
Musculoskeletal: No Cyanosis. Edema, Left Lower Extremity (2+). Edema, Right Lower Extremity (2+).
Skin: Warm. Dry.
Neuro: AAO x 3 and Nonfocal/grossly intact
Psych: Calm
Assessment/Plan
64 y/o female with CHF preserved EF, s/p ST [facility]aurang's mechanical valve placement, paroxysmal afib coming in with progressive SOB, MORGAN and orthopnea. Only mild weight gain per patient (about 2 -3 pounds). Increased LE edema.
#Sotmy-ye-iwkiwof HFpEF
# acute cardiogenic Pulmonary Edema
- Continue monitoring on telemetry for now
- s/p IV Bumex, on oral Bumex
- Keep K, Mag > 4, 2
- continue Farxiga and spironolactone
- echo showed LVEF 6-65%. [facility]ang mechanical aortic valve with peak/mean gradients of 35/18 mmHg. Trace AI. Mod to severe TR, Mild MR.
- cardiology consult appreciated
# hypokalemia
replace
#Valvular heart disease
- continue AC with Coumadin 7.5 sunday, 5 other days
#Permanent Atrial fibrillation
- continue ac . Holding Coumadin today due to hypercoagulopathy from Coumadin.
- atenolol 25 daily
#DM II
- Stopped metformin due to CKD
c/w Farxiga
- insulin sliding scale
# CKD stage IIIb
Creatinine around 1.4, improving/ stable since admission
DVT Prophylaxis: On Coumadin
Code Status: full code
Total discharge time spent to see the patient, examine the patient, review data and lab results, discuss discharge plan with patient, nursing staff around 65 minutes
Anticipated Discharge: Today
Subjective/Interval History
-
Date of Service: October 18, 2024
No chest pain
No sob
Objective Data
-
Labs:
Laboratory Results
10/18/24
07:30
PT 33.8 H
INR 3.36
Sodium 142
Potassium 4.4 D
Chloride 96 L
Carbon Dioxide 38 H
BUN 28 H
Creatinine 1.6 H
Glucose 155 H
Calcium 9.3
Vital Signs:
Vital Signs
Temp Pulse Resp BP Pulse Ox
97.9 F 81 20 108/79 95
10/18/24 07:00 10/18/24 07:00 10/18/24 07:00 10/18/24 07:00 10/18/24 07:00
I&O
10/17/24 10/18/24 10/19/24
06:59 06:59 06:59
Intake Total 660 / 660 1440 / 1440
Output Total 600 / 600
Balance 660 / 660 840 / 840
[2024-10-18 11:00] VITALS: BP 108/50
[2024-10-18 11:51] LABS: Glucose - Point of Care 192 mg/dl (70-99)
--- NOTE | 2024-10-18 12:21 | W.DCSUMMARY ---
Discharge Summary
Discharge Data
Date of Admission: 10/14/24
Date of Discharge: 10/18/24
-
Pending Results: No
Hospital Course
64 years old female presented with shortness of breath and orthopnea. She also reported increasing leg edema. Patient was diagnosed with acute heart failure. She was evaluated by transcript evaluator, Echocardiogram on 10/15/24 showed LVEF 60-65%, no
regional wall motion abnormalities, normal right ventricular size and function, severely dilated left and right atria, mild mitral stenosis; mean gradient 6 mmHg, mild mitral regurgitation. [facility] [facility] mechanical aortic valve with peak/mean gradients
of 35/18 mmHg. Trace aortic regurgitation. Moderate to severe tricuspid regurgitation. Estimated pulmonary artery pressure of 75-80 mmHg. The IVC is dilated with no collapse. Patient received IV Bumex therapy and she lost weight around 5 kg. Dry
weight around 61 Kg. She started to feel better. She has underlying CKD stage IIB with creatinine 1.4-1.6. Metformin was stopped, started on low dose glipizide. She was taking Farxiga. She was advised to monitor blood glucose to avoid potential
hypoglycemia. Patient was noticed to have bradycardia, atenolol was reduced to half. She remained hemodynamically stable and was discharged home in a stable condition. Family declined home care. Discharge instructions were discussed with her
daughter.
Discharge Plan
-
Patient Disposition: Home (Routine Discharge)
Discharge Diagnosis/Procedures: -Acute on chronic heart failure with a preserved ejection fraction, resume Bumex 2 mg daily with aldactone
-Bradycardia, reduce atenolol to 12.5mg daily.
- Diabetes, stopped metformin due to renal insufficiency. Started low-dose glipizide daily. Monitor your blood sugar to avoid hypoglycemia. Potential drug interaction with Farxiga
-High INR 3.36 on 10/18/24, hold Coumadin on Sunday & Sunday, resume on Friday 10/20 and check INR on Friday 10/20.
Diet: 2 Gram Sodium and Diabetic, Carb Controlled
Blood Work: INR ON 10/20. BMP 1-2 WEEKS.
Instructions: *PCP/Other Communications Maintainer Heart Failure Instructions
Referrals:
Dale Christianson MD [Family Provider] -
Aileen Echeverria MD [Non-Admitting Privileges] - in two to three weeks
Prescriptions:
New
glipizide 2.5 mg tablet
2.5 mg PO DAILY Qty: 30 0RF
Continued
aspirin 81 MG tablet,delayed release (DR/EC)
81 mg PO DAILY
pantoprazole 40 MG tablet,delayed release (DR/EC)
40 mg PO DAILY
folic acid 1 MG tablet
1 mg PO DAILY
ipratropium-albuterol 0.5 mg-3 mg(2.5 mg base)/3 mL Solution For Nebulization
3 ml INHALATION R Q6HPRN PRN (Reason: sob)
bumetanide 2 mg Tablet
2 mg PO DAILY
albuterol sulfate 90 mcg/actuation Hfa Aerosol Inhaler
2 puff INHALATION R Q6HPRN PRN (Reason: sob)
rosuvastatin 40 mg Tablet
40 mg PO HS
dapagliflozin propanediol [Farxiga] 10 mg Tablet
10 mg PO HS
spironolactone 25 mg Tablet
25 mg PO DAILY
Changed
atenolol 25 MG tablet
12.5 mg PO DAILY Qty: 0 0RF
Held
warfarin [Jantoven] 5 MG tablet
5 mg PO SUTUWETHFRSA
Hold Instructions: Resume on 10/22/24.
warfarin 5 mg Tablet
7.5 mg PO MO
Hold Instructions: Resume on 10/20/24.
Discontinued
metformin 500 mg Tablet
500 mg PO DAILY
Discharge Orders:
Discharge Patient (As Directed); Ordered 10/18/24
Ordered By: Valentino Odonnell
Discharge Date and Time
Print Language: [place] LUCI[place]
--- NOTE | 2024-10-18 12:23 | CM ---
Chart reviewed and plan is to home today, patient and spouse have declined visiting nurses again today.
Plan; Home no needs.
== END 2024-10-18 14:24 | disposition home or self-care (01) | DRG 291 ==
LOC: 4 WEST ACU 20:44
PROVIDERS: Hospitalist; Physician Assistant; ADMITTING PHYSICIAN Internal Medicine; ATTENDING PHYSICIAN Internal Medicine; EMERGENCY PHYSICIAN Emergency Medicine; FAMILY PHYSICIAN Internal Medicine; OTHER PHYSICIAN Internal Medicine Cardiovascular Disease
DX: I13.0 Hypertensive heart and chronic kidney disease with heart failure and stage 1 through stage 4 chronic kidney disease, or unspecified chronic kidney disease (principal); I50.33 Acute on chronic diastolic (congestive) heart failure; I50.30 Unspecified diastolic (congestive) heart failure; I48.21 Permanent atrial fibrillation; Z79.01 Long term (current) use of anticoagulants; Z79.82 Long term (current) use of aspirin; E87.6 Hypokalemia; E11.22 Type 2 diabetes mellitus with diabetic chronic kidney disease; N18.9 Chronic kidney disease, unspecified; Z11.52 Encounter for screening for COVID-19
CPT/HCPCS: 71046; 80048; 80053; 82962; 83735; 83880; 84100; 84443; 84484; 85025; 85027; 85610; 86803; 87811; 93005; 93306; 96374; 99285

== ENCOUNTER 2024-12-16 11:56 | Emergency (ER) | payer OTHER, SELFPAY ==
[2024-12-16 12:05] VITALS: BP 98/58
[2024-12-16 12:48] LABS: INR 3.35; PT 33.8 Sec (11.4-14.6)
[2024-12-16 12:55] LABS: ALT (SGPT) 20 U/L (0-35); AST (SGOT) 32 U/L (14-36); Albumin 3.7 g/dl (3.5-5.0); Alkaline Phosphatase 82 U/L (38-126); Blood Urea Nitrogen 23 mg/dl (7-17); Calcium 9.4 mg/dl (8.4-10.2); Carbon Dioxide 28 mmol/L (22-30); Chloride 106 mmol/L (98-107); Glucose 223 mg/dl (70-99); Potassium 3.7 mmol/L (3.5-5.1); Sodium 140 mmol/L (135-145); Total Bilirubin 0.5 mg/dl (0.2-1.3); Total Protein 7.1 g/dl (6.3-8.2); eGFR 41.49
[2024-12-16 13:06] LABS: % Basophils 0.4 % (0-2); % Eosinophils 1.1 % (0-6); % Immature Granulocytes 0.4 % (0-0.5); % Lymphocytes 24.8 % (20.5-51.1); % Monocytes 7.3 % (1.7-9.3); Absolute Eosinophils 0.1 10^3/uL (0-0.7); Absolute Lymphocytes 1.4 10^3/uL (1.2-3.4); Absolute Monocytes 0.4 10^3/uL (0.1-0.6); Absolute Neutrophils 3.6 10^3/uL (1.4-6.5); Hematocrit 30.4 % (37.0-47.0); Hemoglobin 9.6 g/dL (12.0-16.0); Mean Corp Hgb Conc. 31.6 g/dL (33.0-37.0); Mean Corpuscular Hgb 29.5 pg (27.0-31.0); Mean Corpuscular Volume 93.5 fL (81.0-99.0); Nucleated Red Blood Cells % 0 %; Platelet Count 119 10^3/uL (130-400); Red Blood Cell Count 3.25 10^6/uL (4.20-5.40); Red Cell Dist. Width 17.4 % (11.5-14.5); White Blood Cell Count 5.5 10^3/uL (4.8-10.8)
[2024-12-16 13:42] VITALS: BP 99/45
[2024-12-16 14:00] VITALS: BP 107/49
[2024-12-16 14:40] LABS: Troponin I < 0.012 ng/ml
[2024-12-16 14:50] LABS: COVID-19 Antigen Negative (Negative)
[2024-12-16 15:00] VITALS: BP 94/45
[2024-12-16 15:43] LABS: NT-proBNP 1200 pg/ml
[2024-12-16 16:00] VITALS: BP 104/46
[2024-12-16 16:27] VITALS: BP 95/52
--- NOTE | 2024-12-16 16:45 | ED.GENMED ---
History of Present Illness
General
Chief Complaint: Numbness
Source: patient
Exam Limitations: none
Time Seen by Provider: 12/16/24 14:11
History of Present Illness
History of Present Illness:
64-year-old female with history of A-fib CHF MRI presents with multiple vague complaints including numbness of tongue and lips as well as both hands and feet, fatigue and discoloration of the tongue. She denies any black or dark tarry stools. She
was admitted recently for volume overload and was diuresed. She is followed by [facility] [place]. She has a history of anemia. She denies any dark or tarry stools. No other complaints at this time
Past History
Past History
ED Past Medical History: Arrthythmia (Atrial fib), CAD, CHF, HTN, Hypercholesterolemia, Valvular disease and Other (Bronchitis, PNA, Cellulitis breast)
ED Past Surgical History: Cardiac (Aortic Valve replacement) and Cholecystectomy
Social History
Tobacco: Non-smoker
Alcohol: None
Drug: None
Personal:
Living: with family
Employment: Employed
Family History
Family History: Other (denies)
Phy Exam
Physical Exam
Physical Exam:
General: Well-appearing female no acute respiratory distress
HEENT: Normocephalic atraumatic no obvious discoloration of the tongue.
Heart: Bradycardic but regular
Lungs: Clear no wheeze
Abdomen is soft nontender
Extremities: Mild edema bilateral lower extremities no cyanosis
Skin warm no rash
Neurologic exam: Alert and oriented no facial asymmetry no facial droop. No drift on exam.
Course
Orders/Labs/Results
Orders:
Orders
12/16/24 12:22
CT Head W/o Iv Contrast Urgent
Comment: numbness bilateral feet
Reason For Exam: numbness of lips,tongue,bilateral fingertips
CMP [Comprehensive Metabolic Panel] Urgent
Complete Blood Count/With Diff Urgent
PT/INR [Prothrombin Time] Urgent
12/16/24 13:39
EKG [Electrocardiogram (*1)] Urgent
Reason for Study: Chest Pain
EKG- Treatment ONCE
12/16/24 13:47
NT-proBNP Urgent
Comment: ADD ON
Troponin I Urgent
12/16/24 13:53
COVID-19 Antigen Urgent
Source: Nasal Swab
Influenza A+B Rapid Molecular Urgent
YAKELIN Source: Nasal Swab
Specimen Description:
12/16/24 14:51
CR Chest - 2 Views Urgent
Comment:
Reason For Exam: sob
12/16/24 15:02
Add On- LAB Urgent
Tests Added?: bnp
Abnormal Lab Results
12/16/24
12:22
RBC 3.25 L 10^6/uL
(4.20-5.40)
Hgb 9.6 L g/dL
(12.0-16.0)
Hct 30.4 L %
(37.0-47.0)
MCHC 31.6 L g/dL
(33.0-37.0)
RDW 17.4 H %
(11.5-14.5)
Plt Count 119 L 10^3/uL
(130-400)
MPV 11.0 H fL
(7.4-10.4)
PT 33.8 H Sec
(11.4-14.6)
BUN 23 H mg/dl
(7-17)
Creatinine 1.4 H mg/dL
(0.6-1.0)
Glucose 223 H mg/dl
(70-99)
12/16/24 12:22
12/16/24 12:22
Vital Signs
Initial and Last Documented VS:
Initial Vital Signs
Temp Pulse Resp BP Pulse Ox
98.5 F 75 20 98/58 94
12/16/24 12:05 12/16/24 12:05 12/16/24 12:05 12/16/24 12:05 12/16/24 12:05
Last Documented Vital Signs
Temp Pulse Resp BP Pulse Ox
98.5 F 48 17 95/52 99
12/16/24 12:05 12/16/24 16:27 12/16/24 16:27 12/16/24 16:27 12/16/24 16:27
MDM/Problems Addressed
Differential Diagnosis Includes:
Patient with multiple vague complaints of fatigue numbness tongue discoloration. Etiology of symptoms unclear. Do not suspect CVA but CT head was ordered which was negative. Recent volume overload admission. BNP similar to last admission but
chest x-ray much improved. She is not hypoxic. She is occasionally bradycardic and her pressures have been 90s over 50s. Trended her blood pressures in the past and they are somewhat similar. Hemoglobin today is 9.6 which is also near her
baseline. Discussed findings with emergency room attending. No acute finding noted on workup. Explained this to patient. No indication for admission but will recommend close follow-up with her cardiology team. Return precautions were given
*Critical Care Note
Total Time (30-74mins, 75-104mins- exclusive of procedures): Not Applicable
ED Attending Note
-
Portions of this chart may have been created with voice recognition software.� Occasional wrong word or��sound alike� substitutions may have occurred due to the inherent limitations of voice recognition software.
Discharge Plan
Departure
Patient Disposition: Home (Routine Discharge)
Date of Disposition: 12/16/24
Time of Disposition: 16:50
Patient with high blood pressure during this ER visit?: No
Discharge Problem:
Weakness
Prescriptions:
No Action
aspirin 81 MG tablet,delayed release (DR/EC)
81 mg PO DAILY
pantoprazole 40 MG tablet,delayed release (DR/EC)
40 mg PO DAILY
warfarin [Jantoven] 5 MG tablet
5 mg PO SUTUWETHFRSA
folic acid 1 MG tablet
1 mg PO DAILY
ipratropium-albuterol 0.5 mg-3 mg(2.5 mg base)/3 mL Solution For Nebulization
3 ml INHALATION R Q6HPRN PRN (Reason: sob)
bumetanide 2 mg Tablet
2 mg PO DAILY
warfarin 5 mg Tablet
7.5 mg PO MO
albuterol sulfate 90 mcg/actuation Hfa Aerosol Inhaler
2 puff INHALATION R Q6HPRN PRN (Reason: sob)
rosuvastatin 40 mg Tablet
40 mg PO HS
dapagliflozin propanediol [Farxiga] 10 mg Tablet
10 mg PO HS
spironolactone 25 mg Tablet
25 mg PO DAILY
glipizide 2.5 mg tablet
2.5 mg PO DAILY Qty: 30 0RF
atenolol 25 MG tablet
12.5 mg PO DAILY Qty: 0 0RF
Referrals:
Dale Christianson MD [Family Provider] -
Activity Restrictions/Additional Instructions:
Please return here for worsening symptoms. Follow-up with your cardiology team otherwise
Interventions
Interventions:
*Risk Screen - Suicide Last Done: 12/16/24 12:05
*Neglect/Abuse Screening Last Done: 12/16/24 12:05
*ED COVID-19 Vaccine History Last Done: 12/16/24 12:17
Discharge Date and Time
Print Language: AMHARIC
== END 2024-12-16 17:19 | disposition home or self-care (01) ==
LOC: EMR 11:56
PROVIDERS: Emergency Medicine; EMERGENCY PHYSICIAN Emergency Medicine; FAMILY PHYSICIAN Internal Medicine
DX: R53.1 Weakness (principal); I11.0 Hypertensive heart disease with heart failure; I50.9 Heart failure, unspecified; I48.91 Unspecified atrial fibrillation; Z11.52 Encounter for screening for COVID-19
CPT/HCPCS: 99285; 70450; 71046; 80053; 83880; 84484; 85025; 85610; 87502; 87811; 93005